=== PATIENT | female | born 1945 | race Caucasian/White ===

== ENCOUNTER 2017-11-09 19:51 | Emergency (ER) | payer OTHER ==
[~2017-11-09] VITALS: Ht 165.1 cm; Wt 96.1 kg
[~2017-11-09 19:51] MED LIST: ACIPHEX20 MG PO; ADVAIR 100/501 DISK IH; ADVAIR 500/501 DISK IH; ANXIETY PILL; ATORVASTATIN CA20 MG PO; CELEXA20 MG PO; DILAUDID2 MG PO; DIOVAN160 MG PO; ERGOCALCIF50000 UNIT PO; FIORICET 50-301 EACH PO; FLONASE16 G1 BOTH NARES; HYDROCHLOROTHIA25 MG PO; KLONOPIN0.5 M1 PO; LEVAQUIN500 MG PO; MEDROL DOSEPAK4 MG PO; NORCO 5/3251 TABLET PO; PROAIR HFA8.5 GM IH; PROVENTIL,2.5 MG/0.5 IH; SINGULAIR10 MG PO; SKELAXIN800 MG PO; TYLENOL EXTRA500 MG PO; ULTRAM50 MG PO
[2017-11-09 21:31] LABS: HEMATOCRIT 38.4 % (36.0-46.0); HEMOGLOBIN 13.3 G/DL (11.9-15.5); MCH 30.8 PG (29.0-34.0); MCHC 34.6 G/DL (30.0-36.0); MCV 88.9 FL (83-99); PLATELET COUNT 268 K/uL (156-360); RBC DIS.WIDTH-CV 12.8 % (11.8-14.6); RBC DIS.WIDTH-SD 41.6 % (39-53); RED BLOOD COUNT 4.32 M/uL (3.80-5.20); WHITE BLOOD COUNT 9.9 K/uL (4.1-10.2)
[2017-11-09 21:39] LABS: D-DIMER ELISA < 150.00 ng/mLDDU (<230)
[2017-11-09 21:40] LABS: CHLORIDE 101 mEq/L (99-109); POTASSIUM 3.4 mEq/L (3.7-5.4); SODIUM 144 mEq/L (136-147)
[2017-11-09 21:41] LABS: GLUCOSE 130 mg/dL (70-99)
[2017-11-09 21:45] LABS: CREATININE 0.9 mg/dL (0.6-1.3); GFR ESTIMATE (CALCULATED) > 59 mL/min/
[2017-11-09 21:46] LABS: UREA NITROGEN (BUN) 21 mg/dL (9-23)
[2017-11-09 21:53] LABS: TROP-I INTERPRETATION NEGATIVE; TROPONIN-I < 0.01 ng/mL (0.0-0.30)
[2017-11-09 23:10] VITALS: BP 123/75
== END 2017-11-09 23:33 | disposition home or self-care (01) ==
LOC: EME 19:51
PROVIDERS: Emergency Medicine
DX: R42 Dizziness and giddiness (principal); R53.1 Weakness; T43.205A Adverse effect of unspecified antidepressants, initial encounter; R60.0 Localized edema; I10 Essential (primary) hypertension; J45.909 Unspecified asthma, uncomplicated
CPT/HCPCS: 80048; 84484; 85027; 85379; 93005; 93882; 93971; 99281; 99285